=== PATIENT | female | born 1955 | race Caucasian/White ===

== ENCOUNTER 2018-08-23 13:54 | Emergency (ER) | payer OTHER ==
[~2018-08-23] VITALS: Wt 71.0 kg
[~2018-08-23 13:54] MED LIST: ACET-141 PO; CALC1TAB75 PO; CAPS1ADH TOP; DOCU-159 PO; HYDR12.58 PO; HYDR25SU24 PR; IBUP-1542 PO; LORA-407 PO; LOSA50TA14 PO; RANI150T35 PO; SIMV80TA PO; TRAM50TA2 PO; [UNRECOGNIZED DRUG - CODE] PO
[2018-08-23 14:04] VITALS: BP 176/84; PULSE 78; RESP 18
[2018-08-23] MEDS ORDERED: KETOROLAC 30 MG INJ IM STA (14:36)
[2018-08-23] MEDS ORDERED: IBUP-1561 PO (15:58)
[2018-08-23] MEDS ORDERED: TRAM50TA2 PO (15:58)
--- NOTE | 2018-08-23 16:00 | ERD ---
ER Documentation Chief Complaint Chief Complaint R ARM PAIN X 2 WEEKS HPI 63-year-old female presents with previous pain, left arm pain, low back pain worsening over last 2 weeks. She has had this for several months. She has been prescribed tramadol with decreasing relief. She denies any new injury, bowel or bladder, weakness, fevers, shortness of breath or chest pain. ROS All systems reviewed and are negative except as per history of present illness. Medications Home Meds Active Scripts Tramadol HCl (Tramadol HCl) 50 Mg Tablet, 50 MG PO Q4 PRN for PAIN, #20 TAB Prov:YANCI ROSAS MD 08/23/18 Ibuprofen* (Motrin*) 400 Mg Tab, 400 MG PO Q6, #30 TAB Prov:YANCI ROSAS MD 08/23/18 Reported Medications Capsaicin* (Capsaicin* Hot Patch) 1 Patch Adh..patch, 1 PATCH TOP DIRECTED, PATCH DO NOT USE OVERNIGHT 02/27/15 Acetaminophen* (Acetaminophen*) 500 MG Extra Strength Tablet, 1000 MG PO BID PRN for PAIN AND OR ELEVATED TEMP, TAB 02/27/15 Ranitidine Hcl* (Zantac*) 150 Mg Tablet, 150 MG PO BID, TAB 02/27/15 Simvastatin* (Zocor*) 80 Mg Tablet, 80 MG PO QHS, #30 TAB 02/27/15 Hydrochlorothiazide* (Hydrochlorothiazide*) 12.5 Mg Tablet, 12.5 MG PO DAILY, #30 TAB 02/27/15 Tramadol HCl (Tramadol HCl) 50 Mg Tab, 50 MG PO BID PRN for PAIN LEVEL 1-5, TAB 04/03/14 Ibuprofen* (Ibuprofen*) 600 Mg Tablet, 600 MG PO Q6, TAB 03/10/14 Psyllium Seed/Sucrose (Reguloid Powder [place]) 540 Gm Powder, 1 TBS PO DAILY PRN for CONSTIPATION MIX WITH 8 OUNCES OF WATER 01/13/14 Losartan Potassium* (Losartan Potassium*) 50 Mg Tablet, 50 MG PO DAILY, TAB 01/13/14 Hydrocortisone Acetate* (Anusol-HC*) 25 Mg/Supp.rect Supp.rect, 25 MG LA BID PRN for ITCHING, SUPP.RECT 01/13/14 Docusate Sodium* (Docusate Sodium*) 100 Mg Capsule, 100 MG PO BID PRN for CONSTIPATION, CAP 01/13/14 Calcium Carbonate/Vitamin D2* (Os-Basim 250+D*) 1 Tab Tablet, 1 TAB PO DAILY, TAB 01/13/14 Loratadine (Claritin) 10 Mg Tablet, 10 MG PO DAILY 07/31/11 Allergies Allergies: Coded Allergies: No Known Drug Allergies (Verified Allergy, Unknown, 02/27/15) PMhx/Soc History of Surgery: No Hx Neurological Disorder: No Hx Respiratory Disorders: No Hx Cardiac Disorders: No Hx Psychiatric Problems: No Hx Alcohol Use: No Hx Substance Use: No Hx Tobacco Use: No FmHx Family History: No diabetes, No coronary disease, No other Physical Exam Vitals Vital Signs Date Temp Pulse Resp B/P (MAP) Pulse Ox O2 O2 Flow FiO2 Time Delivery Rate 08/23/18 98.0 78 18 176/84 99 14:04 (114) Physical Exam Const: No acute distress Head: Atraumatic Eyes: Normal Conjunctiva ENT: Normal External Ears, Nose and Mouth. Neck: Full range of motion. No meningismus. Tenderness in the cervical paraspinous area. No midline tenderness or deformities. Resp: Clear to auscultation bilaterally Cardio: Regular rate and rhythm, no murmurs Abd: Soft, non tender, non distended. Normal bowel sounds Skin: No petechiae or rashes Back: No midline or flank tenderness. Generalized mild tenderness in the trapezius, lumbar spine and paraspinous muscles. No midline tenderness or deformities. Ext: No cyanosis, or edema Neur: Awake and alert Psych: Normal Mood and Affect Results 24 hrs Current Medications Medications Dose Sig/Dylan Start Time Status Last (Trade) Ordered Route PRN Stop Time Admin Dose Reason Admin Ketorolac 30 mg ONCE STAT 08/23/18 DC 08/23/18 Tromethamine IM 14:36 08/23/18 14:43 (Toradol) 14:38 Procedures/MDM X-ray C spine 3V Interpreted by me: Bones: No fracture Joints: No dislocation Foreign body: None. Impression - degenerative change of the cervical spine without fracture dislocation. X-ray LS-Spine 3V Interpreted by me: Bones: No fracture, or lytic lesions Joints: No dislocation Foreign body: None. Impression - degenerative changes of lumbar spine without identified fracture dislocation. Patient presents with neck pain and low back pain and multiple complaints of myalgias likely musculoskeletal. She has no signs or symptoms suggest rhabdomyolysis, compartment syndrome, neurologic deficit, sepsis, concerning signs or symptoms. She will be treated with Toradol here, refill of tramadol, ibuprofen, primary care follow-up and return precautions. The patient was stable with no new complaints during the ER course. Clinically, there is no current evidence to suggest meningitis, sepsis, acute abdomen, pneumonia, stroke, acute coronary syndrome, pulmonary embolism, aortic dissection or any other emergent condition appearing to require further evaluation or hospitalization. Patient counseled regarding my diagnostic impression and care plan. Prior to discharge all questions answered. Pt agrees with treatment plan and understands strict return precautions. Pt is instructed to follow up with primary care provider within 24-48 hours. Precautionary instructions provided including instructions to return to the ER if not improving or for any worsening or changing symptoms or concerns. Disclaimer: Inadvertent spelling and grammatical errors are likely due to EHR/dictation software use and do not reflect on the overall quality of patient care. Also, please note that the electronic time recorded on this note does not necessarily reflect the actual time of the patient encounter. Departure Diagnosis: Primary Impression: Neck pain Additional Impression: Lumbar pain Condition: Stable Patient Instructions: Back Pain (Acute Or Chronic) Additional Instructions: Arthritis or degenerative changes seen on x-rays. Recommend primary care follow-up. Recommend referral to specialist for persistent pain despite treatment. Recheck for fevers, new worsening symptoms. YANCI ROSAS MD Aug 23, 2018 16:00
== END 2018-08-23 16:10 | disposition home or self-care (01) ==
LOC: FTE 13:54
DX: M54.2 Cervicalgia (principal); M54.5 Low back pain
CPT/HCPCS: 72040; 72100; 96372; 99284; J1885

== ENCOUNTER → 2018-10-22 | Emergency (ER) | payer OTHER ==
[~2018-10-22] VITALS: Ht 157.5 cm; Wt 79.3 kg
[~2018-10-22] MED LIST changes: +GABA300C16 PO; +IBUP-1561 PO; +KETOROLAC 30 MG INJ IM STA; +NITR-58 PO; +PRED20TA PO; +predniSONE 20 MG TAB PO ONE
[2018-10-22 09:07] VITALS: BP 153/74; PULSE 87; RESP 18; Ht 157.5 cm; Wt 79.3 kg
--- NOTE | 2018-10-22 10:43 | ERD ---
ER Documentation Chief Complaint Chief Complaint right leg pain hx sciatica HPI History and physical exam and plan of care discussion performed via police chief services This is a 63-year-old female patient who presents emergency room with complaint of right leg pain x3 weeks. States stabbing pain to right leg radiating down into right posterior leg with walking, bending. Denies numbness or tingling, no bladder or bowel dysfunction, patient is ambulatory with cane. No recent weight loss, no fevers, no melena, NAD. +urinary frequency, denies hematuria. ROS All systems reviewed and are negative except as per history of present illness. Medications Home Meds Active Scripts Nitrofurantoin Monohyd Macrocr* (Macrobid*) 100 Mg Capsr, 100 MG PO BID for 5 Days, #10 CAP Prov:DORINDA SIU NP 10/22/18 Gabapentin* (Gabapentin*) 300 Mg Capsule, 300 MG PO TID for sciatica pain for 30 Days, #90 CAP Prov:DORINDA SIU NP 10/22/18 Prednisone* (Prednisone*) 20 Mg Tab, 40 MG PO DAILY for 4 Days, TAB Prov:DORINDA SIU NP 10/22/18 Tramadol HCl (Tramadol HCl) 50 Mg Tablet, 50 MG PO Q4 PRN for PAIN, #20 TAB Prov:YANCI ROSAS MD 08/23/18 Ibuprofen* (Motrin*) 400 Mg Tab, 400 MG PO Q6, #30 TAB Prov:YANCI ROSAS MD 08/23/18 Reported Medications Capsaicin* (Capsaicin* Hot Patch) 1 Patch Adh..patch, 1 PATCH TOP DIRECTED, PATCH DO NOT USE OVERNIGHT 02/27/15 Acetaminophen* (Acetaminophen*) 500 MG Extra Strength Tablet, 1000 MG PO BID PRN for PAIN AND OR ELEVATED TEMP, TAB 02/27/15 Ranitidine Hcl* (Zantac*) 150 Mg Tablet, 150 MG PO BID, TAB 02/27/15 Simvastatin* (Zocor*) 80 Mg Tablet, 80 MG PO QHS, #30 TAB 02/27/15 Hydrochlorothiazide* (Hydrochlorothiazide*) 12.5 Mg Tablet, 12.5 MG PO DAILY, #30 TAB 02/27/15 Tramadol HCl (Tramadol HCl) 50 Mg Tab, 50 MG PO BID PRN for PAIN LEVEL 1-5, TAB 04/03/14 Ibuprofen* (Ibuprofen*) 600 Mg Tablet, 600 MG PO Q6, TAB 03/10/14 Psyllium Seed/Sucrose (Reguloid Powder [place]) 540 Gm Powder, 1 TBS PO DAILY PRN for CONSTIPATION MIX WITH 8 OUNCES OF WATER 01/13/14 Losartan Potassium* (Losartan Potassium*) 50 Mg Tablet, 50 MG PO DAILY, TAB 01/13/14 Hydrocortisone Acetate* (Anusol-HC*) 25 Mg/Supp.rect Supp.rect, 25 MG AR BID PRN for ITCHING, SUPP.RECT 01/13/14 Docusate Sodium* (Docusate Sodium*) 100 Mg Capsule, 100 MG PO BID PRN for CONSTIPATION, CAP 01/13/14 Calcium Carbonate/Vitamin D2* (Os-Basim 250+D*) 1 Tab Tablet, 1 TAB PO DAILY, TAB 01/13/14 Loratadine (Claritin) 10 Mg Tablet, 10 MG PO DAILY 07/31/11 Allergies Allergies: Coded Allergies: No Known Drug Allergies (Verified Allergy, Unknown, 02/27/15) PMhx/Soc History of Surgery: No Hx Neurological Disorder: No Hx Respiratory Disorders: No Hx Cardiac Disorders: No Hx Psychiatric Problems: No Hx Alcohol Use: No Hx Substance Use: No Hx Tobacco Use: No FmHx Family History: No diabetes, No coronary disease, No other Physical Exam Vitals Vital Signs Date Temp Pulse Resp B/P (MAP) Pulse Ox O2 O2 Flow FiO2 Time Delivery Rate 10/22/18 98.8 87 18 153/74 99 09:07 (100) Physical Exam Const: No acute distress Head: Atraumatic Eyes: Normal Conjunctiva, PERRL ENT: Normal External Ears, Nose and Mouth. Pharynx pink, moist, no lesions, no exudate. Neck: Full range of motion. No meningismus. No lymphadenopathy Resp: Clear to auscultation bilaterally, no wheezing, no rales Cardio: Regular rate and rhythm, no murmurs Abd: Soft, non tender, non distended. Normal bowel sounds, CVT Skin: No petechiae or rashes, bruising Ext: No cyanosis, or edema Neur: Awake and alert, CN II-XII intact, clear speech, steady gait, negative Romberg, sensation intact bilaterally Psych: Normal Mood and Affect Back Exam: Skin: No bruising or rash Compartments: Soft Motor: Normal flexion and extension of bilateral hip/knee/ankle/foot. +straight leg test right leg. Sensation: Intact to light touch throughout Bones: No spinal tenderness, +alignment Results 24 hrs Laboratory Tests Test 10/22/18 10:45 Urine Color JUAN Urine Clarity SLIGHTLY CLOUDY Urine pH 6.0 Urine Specific [place] 1.018 Urine Ketones NEGATIVE mg/dL Urine Nitrite NEGATIVE mg/dL Urine Bilirubin NEGATIVE mg/dL Urine Urobilinogen NEGATIVE mg/dL Urine Leukocyte Esterase 3+ Stefanie/ul Urine Microscopic RBC 3 /HPF Urine Microscopic WBC 8 /HPF Urine Squamous Epithelial Cells FEW /HPF Urine Renal Epithelial Cells FEW /HPF Urine Mucus FEW /HPF Urine Hemoglobin NEGATIVE mg/dL Urine Glucose NEGATIVE mg/dL Urine Total Protein NEGATIVE mg/dl Current Medications Medications Dose Sig/Dylan Start Time Status Last (Trade) Ordered Route PRN Stop Time Admin Dose Reason Admin Prednisone 60 mg ONCE ONCE 10/22/18 DC 10/22/18 (Prednisone) PO 10:30 10/22/18 10:21 10:31 Ketorolac 30 mg ONCE STAT 10/22/18 DC 10/22/18 Tromethamine IM 10:10 10/22/18 10:21 (Toradol) 10:11 Procedures/MDM PROCEDURES/MDM DIAGNOSTIC IMAGING: Not performed today. Lumbar spine x-ray August 25, 2018 IMPRESSION: 1. No displaced fracture. 2. Degenerate grade 1 anterior listhesis of L4-L5 with secondary facet arthropathy at L4-5 and L5-S1 3. Moderate degenerate disc change at L5-S1. 4. Atherosclerotic aortic calcification. 5. Rim calcified structure in the left chanelle pelvis may represent ovarian calcification versus diverticulum LAB INTERPRETATION: UA: +leukocytes, +WBC, +RBC -Medications: Toradol, prednisone Patient tolerated medication well with no adverse reactions. Patient reported improvement in pain. MDM: Patient is able to ambulate to treatment area without assistance. Patient is seated on the stretcher without obvious distress. There is no surface trauma. No muscle tenderness to palpation, no spasms, no step-off or deformity, no CVA tenderness to percussion, patient is able to stand erect. Normal flexion and extension with lateral bending and rotation without limitation. Heel and toe walk with good strength Straight leg raise +radiculopathy, sensation to light touch is intact. Due to patient's presentation today there is low suspicion for malignancy, infection, epidural abscess, cauda equina syndrome, herniation, AAA. Patient's musculoskeletal symptoms have stabilized while they have been evaluated in the department and are appropriate for outpatient work up. Patient is being discharged home with instructions to follow-up with primary care provider. Patient is also provided prescription for NSAID with instructions for use of heat, ice, stretching. Red flags discussed, patient verbalized understanding of signs and symptoms to return to emergency room. Patient urine +UTI. There is low suspicion for pyelonephritis, vaginitis, STI, or interstitial cystitis due to absence of clinical findings that would support a diagnosis more serious than uncomplicated UTI. These diagnoses have been considered and excluded clinically. Nonetheless, it is understood by both the patient and provider that no clinical or diagnostic assessment can entirely exclude such diseases. DISPOSITION and PLAN: RX: Gabapentin, prednisone, macrobid The patient has been discharge home to follow-up with community physician. Departure Diagnosis: Primary Impression: Pain of right leg Additional Impression: Cystitis Condition: Stable Patient Instructions: Back Pain W/ Sciatica, Understanding Sciatica, Underst anding Urinary Tract Infections (UTIs) Referrals: [facility] Usted se vazquez hecho un examen mdico de control que le indica que no est en sharda condicin que requiera tratamiento urgente en el Departamento de Emergencia. Un estudio ms profundo y el tratamiento de aviles condicin pueden esperar sin ningn riesgo hasta que usted sea atendida/o en el consultorio de aviles mdico o sharda clnica. Es responsabilidad suya arreglar sharda parmjit para el seguimiento del deshaun. MANEJO DE CONDICIONES NO URGENTES EN EL FUTURO 1) Si usted tiene un mdico de atencin primaria: Usted debera llamar a aviles mdico de atencin primaria antes de venir al departamento de emergencia. Despus de las horas de consultorio, aviles doctor o aviles asociado/a est disponible por telfono. El mdico o enfermero de greg en el servicio telefnico puede asesorarle por mi medio para atender el problema, o deshaun contrario se puede programar sharda parmjit. 2) Si usted no tiene un mdico de atencin primaria: Llame al mdico o clnica de referencia que aparece abajo andressa las horas de consultorio para hacer sharda parmjit para que le vean. CLINICAS: [facility] [phone] [facility] [phone] [facility] [phone] [facility] [phone] [place] [id number] [phone] [facility] [phone] [facility] Hours: Mon-Fri 9:00 AM - 5:00 PM [facility] Usted se vazquez hecho un examen mdico de control que le indica que no est en sharda condicin que requiera tratamiento urgente en el Departamento de Emergencia. Un estudio ms profundo y el tratamiento de aviles condicin pueden esperar sin ningn riesgo hasta que usted sea atendida/o en el consultorio de aviles mdico o sharda clnica. Es responsabilidad suya arreglar sharda parmjit para el seguimiento del deshaun. MANEJO DE CONDICIONES NO URGENTES EN EL FUTURO 1) Si usted tiene un mdico de atencin primaria: Usted debera llamar a aviles mdico de atencin primaria antes de venir al departamento de emergencia. Despus de las horas de consultorio, aviles doctor o aviles asociado/a est disponible por telfono. El mdico o enfermero de greg en el servicio telefnico puede asesorarle por mi medio para atender el problema, o deshaun contrario se puede programar sharda parmjit. 2) Si usted no tiene un mdico de atencin primaria: Llame al mdico o condado institucions de referencia que aparece abajo andressa las horas de consultorio para hacer sharda parmjit para que le vean. SI USTED NO PUEDE PAGAR PARA AMARIS UN MEDICO puede ir a: [facility] [id number] [place] [address] [facility] [address] [place] [address] [facility] [address] [place] [address] [address]A [facility] [address] [place], [place] [id number] Additional Instructions: Visite a aviles mdico maana para un EXAMEN.Regrese a estas instalaciones si no se mejora venecia esperbamos o venecia le dijimos. DORINDA SIU NP Oct 22, 2018 10:43
== END | disposition home or self-care (01) ==
LOC: FTE 09:04
DX: M79.604 Pain in right leg (principal); N30.90 Cystitis, unspecified without hematuria
CPT/HCPCS: 81001; 96372; 99284; J1885; J7512